=== PATIENT | male | born 1970 | race Two or more races ===

== ENCOUNTER 2023-08-16 12:38 | Inpatient (IN) ==
[2023-08-16] MEDS ORDERED: ONDANSETRON INJ 2 MG/ML 2 ML VIAL IV STA ×2 (12:54→13:14)
[2023-08-16] MEDS ORDERED: fentaNYL citrate PF 100 MCG/2 ML VIAL IV STA ×2 (13:14→14:15)
[2023-08-16] MEDS ORDERED: KETOROLAC TROMETHAMINE 15 MG/ML VIAL IV STA (13:14)
[2023-08-16 13:21] LABS: Basophils # (auto) 0.07 K/uL (0.00-0.20); Basophils % (auto) 0.7 %; Eosinophils # (auto) 0.15 K/uL (0.00-0.50); Eosinophils % (auto) 1.5 %; Hematocrit (blood only) 42.8 % (42.0-52.0); Hemoglobin 15.2 g/dl (14.0-18.0); Immature Granulocytes # (auto) 0.03 K/uL (0.01-0.20); Immature Granulocytes % (auto) 0.3 %; Lymphocytes # (auto) 3.77 K/uL (1.20-3.40); Lymphocytes % (auto) 36.7 %; Mean Corpuscular Hgb Conc 35.5 g/dL (32.0-36.0); Mean Corpuscular Volume 84.4 fL (80.0-100.0); Mean Platelet Volume 10.6 fL (9.4-12.4); Monocytes # (auto) 0.91 K/uL (0.11-0.59); Monocytes % (auto) 8.9 %; Neutrophils # (auto) 5.33 K/uL (1.40-6.50); Neutrophils % (auto) 51.9 %; Platelet Count 325 K/uL (130-400); RDW Coefficient of Variation 12.6 % (11.5-14.5); RDW Standard Deviation 38.5 fL (36.4-46.3); Red Blood Count 5.07 M/uL (4.70-6.10); White Blood Count 10.26 K/ul (4.8-10.8)
--- NOTE | 2023-08-16 13:25 | Emergency Department Note ---
History of Present Illness General Chief complaint: GI Assessment Stated complaint: LOWER ABD AND RT SIDE ABD PAIN, VOMIT Time Seen by Provider: 08/16/23 13:09 History of Present Illness Maximum Pain Intensity: 10 53-year-old male presents emergency department with 1 day history of lower abdominal pain that then worsened a few hours ago and is now located in the right flank radiates into his right groin. There is no back pain patient is having decreased urine output. Patient states that the pain is moderate in nature. His daughter is at bedside helping to translate. Patient denies prior history of any abdominal surgeries or ureterolithiasis. There are no other mitigating or alleviating factors. There is been no fever in the past 24 hours. Past Med/Surg History Social History Smoking Status: Current some day smoker Feels Safe at Home: Yes Immunizations: Past medical history denies Review of Systems A total of 10 systems reviewed and were otherwise negative Gastrointestinal: + abdominal pain Physical Exam Vital Signs Vital Signs - 24 hr 08/16/23 12:41 08/16/23 14:09 Temperature 36.8 C Temperature Source Temporal Artery Scan Pulse Rate 81 Pulse Rate [Finger] 69 Respiratory Rate 18 14 Respiratory Effort / Characteristics Non-Labored Spontaneous Respiratory Depth Normal Respiratory Pattern Regular Blood Pressure 158/88 H Blood Pressure [Left Arm] 139/89 Blood Pressure Mean 111 Blood Pressure Mean [Left Arm] 105 Blood Pressure Position Sitting Pulse Oximetry 98 99 Oxygen Delivery Method Room Air Room Air Sepsis Recent Fever Within 48 Hours No Sepsis New/Unexplained Change in Mental Status No Sepsis Action Taken by Nursing No Action Required GENERAL: Patient is awake alert in obvious pain pacing in the room EYES: The conjunctivae are clear. The pupils are round and reactive. EARS, NOSE, MOUTH AND THROAT: The nose is without any evidence of any deformity. Mucous membranes are moist. Tongue is midline. NECK: The neck is nontender and supple. RESPIRATORY: Normal respiratory effort is noted there is no evidence of wheezing rhonchi or rales CARDIOVASCULAR: Regular rate and rhythm noted there no murmurs rubs or gallops normal S1 normal S2. GASTROINTESTINAL: The abdomen is soft. Abdomen is nontender. No rebound rigidity or guarding BACK: No midline tenderness or or step-off noted range of motion in flexion extension as well as rotation no signs of muscle spasm noted; NO CVAT MUSCULOSKELETAL/EXTREMITIES: There is no evidence of gross deformity full range of motion is noted in the hips and shoulders. SKIN: There is no obvious evidence of any rash. There are no petechiae, pallor or cyanosis noted. NEUROLOGIC: Patient is awake alert and oriented x3 strength is symmetric Course Reevaluation(s) Reevaluation #1: Patient continues to have severe pain. He is writhing in pain on my repeat examination. Patient was given IV fluids IV Toradol IV fentanyl and IV Dilaudid and Flomax. Time: 14:50 Consultations Consultation #1: Case was discussed with Dr. Lin from urology Time: 14:50 Consultation #2: Spoke with the [facility]ist for admission Time: 15:10 Administered Medications Discontinued Medications Fentanyl Citrate (Fentanyl Citrate Pf 100 Mcg/2 Ml Vial) 50 mcg IV NOW STA Stop: 08/16/23 13:15 Last Admin: 08/16/23 13:18 Dose: 50 mcg Documented By: ANN-MARIE Fentanyl Citrate (Fentanyl Citrate Pf 100 Mcg/2 Ml Vial) 50 mcg IV NOW STA Stop: 08/16/23 14:16 Last Admin: 08/16/23 14:18 Dose: 50 mcg Documented By: MARISA Ketorolac Tromethamine (Ketorolac Tromethamine 15 Mg/Ml Vial) 15 mg IV NOW STA Stop: 08/16/23 13:15 Last Admin: 08/16/23 13:18 Dose: 15 mg Documented By: ANN-MARIE Ondansetron HCl (Ondansetron Inj 2 Mg/Ml 2 Ml Vial) 4 mg IV NOW STA Stop: 08/16/23 12:55 Last Admin: 08/16/23 12:59 Dose: 4 mg Documented By: ELISA Ondansetron HCl (Ondansetron Inj 2 Mg/Ml 2 Ml Vial) 4 mg IV NOW STA Stop: 08/16/23 13:15 Last Admin: 08/16/23 13:19 Dose: 4 mg Documented By: ANN-MARIE Tamsulosin HCl (Tamsulosin Hcl 0.4 Mg Cap) 0.4 mg PO NOW ONE Stop: 08/16/23 14:05 Last Admin: 08/16/23 14:55 Dose: Not Given Documented By: MARISA Medical Decision Making Medical Records Attestation: I reviewed the patient's medical records. Home Medications Current Medication List: was personally reviewed by me Laboratory Data Attestation: I reviewed the patient's lab results. Labs interpreted by me patient has mild hyperglycemia 08/16/23 13:00 08/16/23 13:00 Lab Results 08/16/23 Range/Units 13:00 WBC 10.26 (4.8-10.8) K/ul RBC 5.07 (4.70-6.10) M/uL Hgb 15.2 (14.0-18.0) g/dl Hct 42.8 (42.0-52.0) % MCV 84.4 (80.0-100.0) fL MCH 30.0 (25.0-34.0) pg MCHC 35.5 (32.0-36.0) g/dL RDW Std Deviation 38.5 (36.4-46.3) fL RDW Coeff of Capri 12.6 (11.5-14.5) % Plt Count 325 (130-400) K/uL MPV 10.6 (9.4-12.4) fL Immature Gran % (Auto) 0.3 % Neut % (Auto) 51.9 % Lymph % (Auto) 36.7 % [place] % (Auto) 8.9 % Eos % (Auto) 1.5 % Baso % (Auto) 0.7 % Neut # (Auto) 5.33 (1.40-6.50) K/uL Lymph # (Auto) 3.77 H (1.20-3.40) K/uL [place] # (Auto) 0.91 H (0.11-0.59) K/uL Eos # (Auto) 0.15 (0.00-0.50) K/uL Baso # (Auto) 0.07 (0.00-0.20) K/uL Immature Gran # (Auto) 0.03 (0.01-0.20) K/uL Sodium 136 (136-145) mmol/L Potassium 4.1 (3.5-5.1) mmol/L Chloride 103 (98-107) mmol/L Carbon Dioxide 24 (21-32) mmol/L Anion Gap 9 (3-11) BUN 16 (6-23) mg/dl Creatinine 0.94 (0.6-1.4) mg/dl Est Cr Clr Drug Dosing 102.2 ml/min Est GFR ( Amer) 106.1 ml/min Est GFR (Non-Af Amer) 91.6 ml/min BUN/Creatinine Ratio 17.0 (10-20) Glucose 183 H (70-99(Fasting)) mg/dl Calcium 9.2 (8.6-10.3) mg/dl Total Bilirubin 0.5 (0.2-1.0) mg/dl AST 19 (13-39) U/L ALT 22 (7-52) U/L Alkaline Phosphatase 52 (34-104) U/L Total Protein 8.2 (6.0-8.3) gm/dl Albumin 4.4 (3.4-5.0) gm/dl Globulin 3.8 (2.5-4.0) gm/dl Albumin/Globulin Ratio 1.2 (0.9-2) Lipase 30 (11-82) U/L Imaging Data Attestation: I personally reviewed and interpreted this imaging study as follows: My Impression: CT abdomen pelvis per my interpretation is a 5 mm stone present at the right UVJ Radiologist's Impression: Abdomen/Pelvis CT 08/16/23 13:18 CT OF THE ABDOMEN AND PELVIS WITHOUT CONTRAST CLINICAL HISTORY: Right flank pain. COMPARISON STUDY: No previous studies for comparison. TECHNIQUE: Axial images of the abdomen and pelvis were obtained without IV contrast. Images were reviewed in the axial, sagittal, and coronal planes. Automated exposure control was utilized for the study. A dose lowering technique was utilized adhering to the principles of ALARA. FINDINGS: Lung bases are unremarkable. 5 mm calcification projects over the right posterior aspect of the bladder. This is at the ureterovesical junction. This results in mild right hydroureteronephrosis. Several right renal calculi measure up to 4 mm. There are no left ureteral calculi. There is no left hydronephrosis. There is mild right perinephric and periureteral stranding. A 3.5 cm hypodense lesion within the midpole of the right kidney measures just above water attenuation. This contains a few punctate calcifications. This is suboptimally assessed on this unenhanced exam. Liver, spleen, adrenal glands and pancreas are unremarkable. There is no evidence for a bowel obstruction. The appendix is normal. There is no lymphadenopathy. IMPRESSION: 1. 5 mm right ureterovesical junction calculus results in mild hydroureteronephrosis with minimal perinephric and periureteral stranding. 2. Right nephrolithiasis. 3. 3.5 cm hypodense right renal lesion. This probably reflects a mildly complicated cyst. However, a nonemergent follow-up renal protocol MRI is recommended to exclude the less likely possibility of a cystic neoplasm. ACT 112: Positive. There are findings on this exam that require communication between the performing entity and the patient following Patient Test Result Information Act ([place] Act 112) guidelines. Electronically signed by: Vic Ann M.D. 08/16/2023 1:59 PM MDM Narrative Medical decision making differential diagnosis includes ureterolithiasis, renal colic, urinary tract infection, bowel obstruction, musculoskeletal spasm Plan is to check labs, CT, give IV fluids IV pain medicine IV antiemetics Patient has a 5 mm stone at the UVJ on the right side on CT, continues to have severe pain. The case was discussed with the urologist Dr. Lin and the patient will be admitted for intractable pain Impression & Plan Ureterolithiasis, Intractable pain Discharge Plan Visit Data Chief Complaint: GI Assessment Stated Complaint: LOWER ABD AND RT SIDE ABD PAIN, VOMIT ED Provider: Sixto Soriano Discharge Problem: Ureterolithiasis, Intractable pain Patient Disposition: Admitted As Inpatient Forms Stand Alone Forms: My [facility] Referrals Referrals: PCP,NO [Physician] -
[2023-08-16 13:37] LABS: Albumin Globulin Ratio 1.2 (0.9-2); Albumin Level 4.4 gm/dl (3.4-5.0); Bilirubin,Total 0.5 mg/dl (0.2-1.0); Calcium 9.2 mg/dl (8.6-10.3); Creatinine Clr Calc Pharmacy 102.2 ml/min; Est GFR (African American) 106.1 ml/min; Est GFR (Non-African American) 91.6 ml/min; Globulin 3.8 gm/dl (2.5-4.0); Potassium 4.1 mmol/L (3.5-5.1); Total Protein 8.2 gm/dl (6.0-8.3)
--- NOTE | 2023-08-16 14:01 | CT Scan Report ---
CT OF THE ABDOMEN AND PELVIS WITHOUT CONTRAST CLINICAL HISTORY: Right flank pain. COMPARISON STUDY: No previous studies for comparison. TECHNIQUE: Axial images of the abdomen and pelvis were obtained without IV contrast. Images were revi ewed in the axial, sagittal, and coronal planes. Automated exposure control was utilized for the dianelys dy. A dose lowering technique was utilized adhering to the principles of ALARA. FINDINGS: Lung bases are unremarkable. 5 mm calcification projects over the right posterior aspect of the bladder. This is at the ureterovesical junction. This results in mild right hydroureteronephrosi s. Several right renal calculi measure up to 4 mm. There are no left ureteral calculi. There is no le ft hydronephrosis. There is mild right perinephric and periureteral stranding. A 3.5 cm hypodense les ion within the midpole of the right kidney measures just above water attenuation. This contains a few punctate calcifications. This is suboptimally assessed on this unenhanced exam. Liver, spleen, adren al glands and pancreas are unremarkable. There is no evidence for a bowel obstruction. The appendix i s normal. There is no lymphadenopathy. IMPRESSION: 1. 5 mm right ureterovesical junction calculus results in mild hydroureteronephrosis with minimal per inephric and periureteral stranding. 2. Right nephrolithiasis. 3. 3.5 cm hypodense right renal lesion. This probably reflects a mildly complicated cyst. However, a nonemergent follow-up renal protocol MRI is recommended to exclude the less likely possibility of a c ystic neoplasm. ACT 112: Positive. There are findings on this exam that require communication between the performing entity and the patient following Patient Test Result Information Act ([place] Act 112) guidelines. Electronically signed by: Vic Ann M.D. 08/16/2023 1:59 PM
[2023-08-16] MEDS: TAMSULOSIN HCL 0.4 MG CAP PO ONE ×2 (14:13→14:55)
[2023-08-16] MEDS ORDERED: HYDROmorphone INJ 0.5 MG/0.5 ML SYR IV STA (14:35)
--- NOTE | 2023-08-16 15:59 | History & Physical Report ---
Date of Service August 16, 2023 Assessment & Plan (1) Ureterolithiasis: (2) Right flank pain: (3) Hydronephrosis: Plan: Patient is a 53-year-old male with PMH DM II, dyslipidemia presented to ER with c/o right flank pain started this morning with associated nausea and vomiting. In ER afebrile, vitals stable. No leukocytosis, renal functions WNL CT abd/pelvis: 5 mm right ureterovesical junction calculus results in mild hydroureteronephrosis with minimal perinephric and periureteral stranding. Right nephrolithiasis. In ER given toradol IV, total 100mcg Fentanyl, zofran, tamsulosin Upon my evaluation patient now reports pain 2/10 on pain scale and feeling improved UA pending to rule out UTI Strain urine Start Flomax Pain control with Tylenol, Toradol, oxycodone, morphine as needed If would pass stone plan to send stone for evaluation ER physician spoke to urology on-call who suggested conservative management and observation at this time Urology consult CBC, BMP in am (4) Renal cyst: Plan: CT abd/pelvis: 3.5 cm hypodense right renal lesion. This probably reflects a mildly complicated cyst. However, a nonemergent follow-up renal protocol MRI is recommended to exclude the less likely possibility of a cystic neoplasm. Urology consult for recommendations on imaging and follow up (5) Diabetes mellitus, type II: Plan: A1c: 6.7 on 09/18/22 random glucose: 183 Hold home metformin Novolog sliding scale per protocol A1c in am (6) Dyslipidemia: Plan: Continue simvastatin DVT Prophylaxis SCDs Full Code as per discussion with pt Follows with Dr Goldman for routine care Pt was seen and care coordinated with Dr Alvarez. See addendum History of Present Illness Chief Complaint: Flank pain Primary Care Provider: Danika Goldman MD Patient is a 53-year-old male with PMH DM II, dyslipidemia presented to ER with c/o right flank pain started this morning. History obtained from patient, daughter and outpatient chart review. 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 He states he will accept and use crystal growing technician service when daughter goes home. Patient states yesterday started with slight twinge lower abdomen but initially thought it was gas. This morning had onset of severe pain right flank radiating to groin. Also had nausea and vomiting. States pain was 10/10 on pain scale. States always cold but hasn't noticed a fever. Denies history kidney stones. Denies fever/chills, diaphoresis, hematemesis, melena, hematochezia, diarrhea, constipation, REINOSO, dizziness, syncope, CP, SOB, cough, sore throat, rhinorrhea, weakness, extremity edema, rashes, urinary retention, urinary frequency, hematuria, dysuria. Allergies Allergy/AdvReac Type Severity Reaction Status Date / Time No Known Drug Allergies Allergy Verified 08/16/23 15:28 Home Medications Medication Instructions Recorded Confirmed Type metformin 500 mg tablet 500 mg PO BIDM 08/16/23 08/16/23 History simvastatin 40 mg tablet 40 mg PO QAM 08/16/23 08/16/23 History Past Med/Surg History Medical History Dyslipidemia Diabetes mellitus, type II Surgical History No pertinent past surgical history Family History Father Kidney disease Sister Diabetes Social History (Updated 08/16/23 @ 16:22 by Darcie Vivas PA-C) Smoking Status: Current some day smoker Cigarettes Per Day: 2 cigarettes a day; Hx Alcohol Use: No Hx Substance Use: No Preferred Language: [place] Feels Safe at Home: Yes Review of Systems Review of Systems: All systems reviewed & are unremarkable except as noted in HPI & below Physical Exam Physical Exam: General: no current distress, WDWN Head: normocephalic, atraumatic Eyes: conjunctiva non-injected, anicteric ENT: normal inspection external ears, nose, mucous membranes dry Neck: supple, trachea midline Lungs: clear, no respiratory distress, no wheezing/rhonchi/rales CV: RRR, no murmur, no pretibial edema Abd: normal BS, soft,+tenderness to palpation right flank, RLE without rebound or guarding Ext: no cyanosis, no calf tenderness Neuro: A&O x 3, no focal deficits noted, normal affect Skin: warm, dry Results & Data Results & Data Vital Signs (Past 12 Hours) Vital Signs Temp Pulse Pulse Resp BP BP Pulse Ox 08/16/23 14:09 69 14 139/89 99 08/16/23 12:41 36.8 C 81 18 158/88 H 98 O2 Del Method 08/16/23 14:09 Room Air 08/16/23 12:41 Room Air Laboratory Results Short CBC 08/16/23 Range/Units 13:00 WBC 10.26 (4.8-10.8) K/ul Hgb 15.2 (14.0-18.0) g/dl Hct 42.8 (42.0-52.0) % Plt Count 325 (130-400) K/uL BMP 08/16/23 13:00 Sodium 136 Potassium 4.1 Chloride 103 Carbon Dioxide 24 BUN 16 Creatinine 0.94 Glucose 183 H Calcium 9.2 Liver Function 08/16/23 Range/Units 13:00 Total Bilirubin 0.5 (0.2-1.0) mg/dl AST 19 (13-39) U/L ALT 22 (7-52) U/L Alkaline Phosphatase 52 (34-104) U/L Albumin 4.4 (3.4-5.0) gm/dl Diagnostic Findings Abdomen/Pelvis CT 08/16/23 13:18 CT OF THE ABDOMEN AND PELVIS WITHOUT CONTRAST CLINICAL HISTORY: Right flank pain. COMPARISON STUDY: No previous studies for comparison. TECHNIQUE: Axial images of the abdomen and pelvis were obtained without IV contrast. Images were reviewed in the axial, sagittal, and coronal planes. Automated exposure control was utilized for the study. A dose lowering technique was utilized adhering to the principles of ALARA. FINDINGS: Lung bases are unremarkable. 5 mm calcification projects over the right posterior aspect of the bladder. This is at the ureterovesical junction. This results in mild right hydroureteronephrosis. Several right renal calculi measure up to 4 mm. There are no left ureteral calculi. There is no left hydronephrosis. There is mild right perinephric and periureteral stranding. A 3.5 cm hypodense lesion within the midpole of the right kidney measures just above water attenuation. This contains a few punctate calcifications. This is suboptimally assessed on this unenhanced exam. Liver, spleen, adrenal glands and pancreas are unremarkable. There is no evidence for a bowel obstruction. The appendix is normal. There is no lymphadenopathy. IMPRESSION: 1. 5 mm right ureterovesical junction calculus results in mild hydroureteronephrosis with minimal perinephric and periureteral stranding. 2. Right nephrolithiasis. 3. 3.5 cm hypodense right renal lesion. This probably reflects a mildly complicated cyst. However, a nonemergent follow-up renal protocol MRI is recommended to exclude the less likely possibility of a cystic neoplasm. ACT 112: Positive. There are findings on this exam that require communication between the performing entity and the patient following Patient Test Result Information Act ([place] Act 112) guidelines. Electronically signed by: Vic Ann M.D. 08/16/2023 1:59 PM Code Status & VTE Plan VTE Prophylaxis Plan VTE Prophylaxis will be ordered: Yes Supervising Physician Co-Signing Physician Notes I have seen and discussed the case with the collaborating SH[facility]. I agree with the above H&P. I have reviewed and confirmed the patients medical history, the findings on physical examination, and the patients diagnosis and treatment plan with Edwin SQUIRES and agree with the information documented. In short, Mr. Uribe is a [place] speaking gentleman with past history notable for HLD, DMTII who is admitted for pain control in setting of obstructing nephrolithiasis. Urology recommended observation at this time. Translation provided by daughter per patient request. On time of eval, reported pain better controlled and no acute concerns. Physical exam is notable for a gentleman resting comfortably in bed. Resp CTABL, CV RRR, Abd NTND, MSK 5/5 strength in all extremities. Reports more comfort laying supine versus sitting upright. Labs without FRANCI. Hyperglycemia noted. Plan #Obstructing nephrolithiasis -No signs of infection, will hold on abx and follow up UA -Start flomax and hydrate, plan to strain urine to send stone for eval -Urology following, appreciate further recommendations contingent on course #Lesion on right kidney -likely OP renal follow up, will defer to Urology for any urgent imaging recommendations Rest of plan as above
[2023-08-16] MEDS ORDERED: oxyCODONE HCL IR 5 MG TAB (IMMEDIATE RELEASE) PO PRN (16:44)
[2023-08-16] MEDS ORDERED: GLUCAGON FOR INJ 1 MG VIAL SQ PRN (16:44)
[2023-08-16] MEDS ORDERED: MoRPHine SULFATE 4 MG/ML 1 ML CARP\\VIAL IV PRN (16:44)
[2023-08-16] MEDS ORDERED: MAGNESIUM HYDROXIDE SUSP 30 ML UDC PO PRN (16:44)
[2023-08-16] MEDS ORDERED: DEXTROSE 50% 50 ML SYRINGE IV PRN (16:44)
[2023-08-16] MEDS ORDERED: ACETAMINOPHEN 325 MG TAB PO PRN (16:44)
[2023-08-16] MEDS ORDERED: GLUCOSE 10 TAB/TUBE PO PRN (16:44)
[2023-08-16] MEDS ORDERED: CARBOHYDRATES FOR HYPOGLYCEMIA PO PRN (16:44)
[2023-08-16] MEDS ORDERED: ONDANSETRON INJ 2 MG/ML 2 ML VIAL IV PRN (16:44)
[2023-08-16] MEDS ORDERED: POLYETHYLENE (MIRALAX) 17 GM PACK PO PRN (16:44)
[2023-08-16] MEDS ORDERED: GLUCOSE 40% GEL 15 GM TUBE PO PRN (16:44)
[2023-08-16] MEDS ORDERED: KETOROLAC TROMETHAMINE 15 MG/ML VIAL IV PRN (16:44)
[2023-08-16] MEDS: SODIUM CHLORIDE 0.9% 1,000 ML IV SCH (17:55)
[2023-08-16] MEDS: INSULIN ASPART PER UNIT CHARGE SC SCH ×2 (18:03→20:57)
--- OUTSIDE RECORDS SUMMARY | 2023-08-16 21:24 | External Medical Summary | Summary of Care ---
Author Name Unknown Organization [facility] Address [address] [place] [address] Phone [phone] Care Team Providers Care Marionette Performer Name Role Phone Danika Goldman MD Primary Care Provider Reason for Visit * Reason Comments Acute Sinus pressure, head ache, body aches, weakness, chills, Temp 102.2 last evening-symptoms started 3 days ago Encounter Details Date Type Department Care Team Description 05/17/2023 Office Visit [facility] [address] [place] [address] Jayson Gallegos MD [address] [place] [address] Spasm of muscle* Allergies No known active allergiesdocumented as of this encounter (statuses as of 05/17/2023) Medications Medication Sig Dispensed Refills Start Date End Date Status metFORMIN HCl 500 MG Oral Tablet (Glucophage)Indicati ons:Type 2 diabetes mellitus with hemoglobin A1c goal of less than 7.0% (HCC) Take 1 Tablet by mouth 2 times a day with morning and evening meals. 180 Tablet 3 09/18/2022 Active Simvastatin 40 MG Oral Tablet (Zocor)Indications:D yslipidemia, goal LDL below 130 Take 1 Tablet by mouth in the morning. 90 Tablet 3 09/18/2022 Active Cyclobenzaprine HCl 10 MG Oral Tablet (Flexeril)Indication s:Spasm of muscle Take 1 Tablet by mouth 2 times a day as needed for Muscle spasms. 10 Tablet 0 05/17/2023 Active documented as of this encounter (statuses as of 05/17/2023) Active Problems Problem Noted Date PTSD (post-traumatic stress disorder) Persistent insomnia 01/11/2022 Chronic bilateral thoracic back pain Benign skin cyst 01/11/2022 Laceration of finger nail bed 09/20/2021 Type 2 diabetes mellitus with hemoglobin A1c goal of less than 7.0% 08/30/2021 Dyslipidemia, goal LDL below 130 022 Recurrent major depressive disorder, in full remission 08/30/2021 COVID-19 virus infection 08/30/2021 Overview: 06/2020, hospitalized. documented as of this encounter (statuses as of 05/17/2023) Immunizations Name Administration Dates Next Due COVID-19 mRNA, LNP-s, No Pre serve, 2-Dose Series (Pfizer) 12/19/2020,11/28/2020 TDAP (age 10 and older)(Boostrix) 09/16/2021 documented as of this encounter Social History Tobacco Use Types Packs/Day Years Used Date Smoking Tobacco: Never Smokeless Tobacco: Never Alcohol Use Standard Drinks/Week Comments Never 0 (1 standard drink = 0.6 oz pur e alcohol) Food Insecurity Answer Date Recorded Within the past 12 months, y ou worried that your food would run out before you got money to buy more. Never true 05/16/2023 Within the past 12 months, t he food you bought just didn't last and you didn't have money to get more. Never true 05/16/2023 Sex Assigned at Date Recorded Male 09/17/2022 4:[address] Job Start Date Occupation Industry Not on file Not on file Not on file documented as of this encounter Last Filed Vital Signs Vital Sign Reading Time Taken Comments Blood Pressure 122/70 05/17/2023 1:00 PM EDT Pulse 78 05/17/2023 1:00 PM EDT Temperature 36.5 C (97.7 F) 05/17/2023 1:00 PM ED T Respiratory Rate 18 05/17/2023 1:00 PM EDT Oxygen Saturation 97% 05/17/2023 1:00 PM EDT Inhaled Oxygen Concentration - - Weight 98.4 kg (217 lb) 05/17/2023 1:00 PM EDT Height - - Body Mass Index 28.51 08/30/2021 3:09 PM EST documented in this encounter Progress Notes * Jayson Gallegos MD - 05/17/2023 1:43 PM EDT Subjective: Cody Uribe is a 53 year old male. Chief Complaint Patient presents with Acute Sinus pressure, headache, body aches, weakness, chills, Temp 102.2 last evening- symptoms started 3 days ago HPI: 53-year-old is seen today with 2 day history of generalize achiness, headache, fever, fatigue/weakness, sinus pressure. He is not had any cough. Not short of breath. Has had no rash. Not aware of any tick bites. Has been using Tylenol in admits that he has been using it every 4 hours so probably in excess. Notes that symptoms are different than when he had COVID-19 infection. He has not tested for COVID-19. Had fever at 1:02 a.m. 0.2 last evening. He asked for renewal of cyclobenzaprine which had been given for back pain. Patient Active Problem List Diagnosis Code Type 2 diabetes mellitus with hemoglobin A1c goal of less than 7.0% ([facility]) E11.9 Dyslipidemia, goal LDL below 130 E78.5 Recurrent major depressive disorder, in full remission ([facility]) F33.42 COVID-19 virus infection U07.1 Laceration of finger nail bed S61.319A PTSD (post-traumatic stress disorder) F43.10 Persistent insomnia G47.00 Chronic bilateral thoracic back pain M54.6, G89.29 Benign skin cyst L72.9 Current Outpatient Medications Medication Sig Dispense Refill metFORMIN HCl 500 MG Oral Tablet (Glucophage) Take 1 Tablet by mouth 2 times a day with morning andevening meals. 180 Tablet 3 Simvastatin 40 MG Oral Tablet (Zocor) Take 1 Tablet by mouth in the morning. 90 Tablet 3 Cyclobenzaprine HCl 10 MG Oral Tablet (Flexeril) Take 1 Tablet by mouth 2 times a day as needed forMuscle spasms. 10 Tablet 0 No current facility-administered medications for this visit. Review of patient's allergies indicates: No Known Allergies Objective: BP 122/70 | Pulse 78 | Temp 36.5 C (97.7 F) | Resp 18 | Wt 98.4 kg (217 lb) | SpO2 97% | BMI 28.51 kg/m | BSA 2.25 m Physical Exam: CONST: alert, pleasant, looks ill although not toxic HEAD: normocephalic, atraumatic NECK: supple, soft, no adenopathy EARS: canals normal, TMs normal Eyes - PERRLA, EOM'I OROPHARYNX: clear, some diffuse swelling noted the soft palate and the uvula. Minimal erythematous changes CV: regular rate and rhythm, no murmur CHEST: clear to auscultation bilaterally, no rales or wheezing ABD: soft, non tender, non distended, no masses or hepatosplenomegaly EXT: no edema, no joint swelling or deformities, MENTAL STATUS: no evidence of thought disorder, no delusional thought, no evidence of paranoia, thought is non-tangential. SKIN: no rash or significant lesions ASSESSMENT/PLAN: Febrile illness-exact etiology unclear. Discussed possibility of COVID infection. Recommended he doa rapid COVID test. Recommended he get back in touch with me if positive as I feel he should then be treated with Paxlovid Consider Lyme test/tick-borne illness panel/in. Treatment doxycycline if COVID test negative Explain proper dosing of acetaminophen i.e. no more than 3 g a day. Spasm of muscle (Primary) - Cyclobenzaprine HCl 10 MG Oral Tablet (Flexeril); Take 1 Tablet by mouth 2 times a day as needed for Muscle spasms. Jayson Gallegos MD documented in this encounter Nursing Notes * Carri Renner LPN - 05/17/2023 1:02 PM EDT The patient has been properly identified by confirmation of name and date of . Chief Complaint Patient presents with Acute Sinus pressure, headache, body aches, weakness, chills, Temp 102.2 last evening- symptoms started 3 days ago documented in this encounter Plan of Treatment Health Maintenance Due Date Last Done Comments Hepatitis B (1 of 3 - 3-dose series) 1969 Pneumococcal Vaccine: Pediatrics (0 to 5 Years) and At-Risk Patients (6 to 64 Years) (1 - PCV) 1975 Depression Screening 1981 HIV Screening 1984 DIABETES-EYE EXAM 1987 Diabetic Foot Exam 1987 Hepatitis C Screening 1987 Cologuard 2014 Colonoscopy 2014 Colorectal Cancer Screening 2014 Fecal Occult Blood Test 2014 Sigmoidoscopy 2014 Zoster Vaccines (1 of 2) 2019 COVID-19 Vaccine (3 - Pfizer series) 02/13/2021 12/19/2020, 11/28/2020 Albumin/Creatinine Ratio 02/09/2023 02/09/2022 HbA1c 03/18/2023 09/18/2022, 02/09/2022, 08/30/2021 Influenza Vaccine (FLU shot) (#1) 2023 GFR 09/18/2023 09/18/2022, 02/09/2022, 09/16/2021 Lipid Panel 09/18/2027 09/18/2022 DTaP,Tdap,and Td Vaccines (2 - Td or Tdap) 09/16/2031 09/16/2021 GARDASIL-HPV IMMUNIZATION SERIES Aged Out No longer eligible b ased on patient's age to complete this topic MENINGOCOCCAL (MENACTRA/MENVEO) Aged Out No longer eligible b ased on patient's age to complete this topic documented as of this encounter Medical Devices Not on filedocumented as of this encounter Visit Diagnoses Diagnosis Spasm of muscle- Primary documented in this encounter Care Teams Marionette Performer Relationship Specialty Start Date End Date Danika Goldman MD [address] [place] [address] PCP - General Internal Medicine 08/30/21 documented as of this encounter"
--- OUTSIDE RECORDS SUMMARY | 2023-08-16 21:24 | External Medical Summary | Summary of Care ---
Author Name Unknown Organization [facility] Address [address] [place] [address] Phone [phone] Care Team Providers Care Facs Teacher Name Role Phone Danika Goldman MD Primary Care Provider Reason for Visit * Reason Comments Acute Sinus pressure, head ache, body aches, weakness, chills, Temp 102.2 last evening-symptoms started 3 days ago Encounter Details Date Type Department Care Team Description 05/17/[address] [facility] [address] [place] [address] Jayson Gallegos MD [address] [place] [address] Spasm of muscle* Allergies No [...] hemoglobin A1c goal of less than 7.0% ([facility]) E11.9 Dyslipidemia, goal LDL below 130 E78.5 Recurrent major depressive disorder, in full remission ([facility]) F33.42 COVID-19 virus infection U07.1 Laceration of [...] with Paxlovid Consider Lyme test/tick-borne illness panel/in. If covid test negative, consider getting Lyme test. Explain proper dosing of acetaminophen i.e. no [...] Primary documented in this encounter Care Teams Facs Teacher Relationship Specialty Start Date End Date Danika Goldman MD [address] [place] [id number] PCP - General Internal Medicine 08/30/21 documented as of this encounter"
[2023-08-16 23:36] LABS: Appearance Urine Clear (Clear); Bacteria Urine Automated Negative (Negative); Bilirubin Urine Negative (Negative); Blood Urine 2+ (Negative); Color Urine Yellow; Glucose Urine UA Negative (Negative); Ketones Urine Trace (Negative); Leukocyte Esterase Urine Negative (Negative); Nitrite Urine Negative (Negative); Protein Urine Trace (Negative); RBC Urine Automated >30 /hpf (0-4); Specific Gravity Urine 1.024 (1.000-1.030); Urobilinogen Urine Negative (Negative); pH Urine 6.5 (4.5-7.5)
[2023-08-17] MEDS ORDERED: Nursing to Pharmacy Communication SCH ×2 (00:15→11:45)
[2023-08-17] MEDS: SODIUM CHLORIDE 0.9% 1,000 ML IV SCH (01:58)
[2023-08-17] MEDS ORDERED: INSULIN ASPART PER UNIT CHARGE SC SCH ×2 (06:00→11:45)
[2023-08-17 07:52] LABS: Hemoglobin 13.5 g/dl (14.0-18.0); Mean Corpuscular Hemoglobin 29.5 pg (25.0-34.0); Mean Corpuscular Hgb Conc 33.8 g/dL (32.0-36.0); Mean Corpuscular Volume 87.3 fL (80.0-100.0); Mean Platelet Volume 11.1 fL (9.4-12.4); Platelet Count 283 K/uL (130-400); RDW Coefficient of Variation 12.9 % (11.5-14.5); RDW Standard Deviation 41.3 fL (36.4-46.3); Red Blood Count 4.58 M/uL (4.70-6.10); White Blood Count 9.78 K/ul (4.8-10.8)
[2023-08-17 08:10] LABS: BUN Creatinine Ratio 16.1 (10-20); Calcium 8.4 mg/dl (8.6-10.3); Creatinine Clr Calc Pharmacy 117.6 ml/min; Est GFR (African American) 113.4 ml/min; Est GFR (Non-African American) 97.8 ml/min; Potassium 3.9 mmol/L (3.5-5.1)
[2023-08-17] MEDS ORDERED: SIMVASTATIN 40 MG TAB PO SCH (09:00)
[2023-08-17] MEDS ORDERED: TAMSULOSIN HCL 0.4 MG CAP PO SCH (09:00)
[2023-08-17 09:37] LABS: Estimated Average Glucose 171 mg/dl; Hemoglobin A1C 7.6 % (4.5-5.6)
--- NOTE | 2023-08-17 11:54 | Urology Consultation ---
Date of Consultation August 17, 2023 Assessment & Plan (1) Ureterolithiasis: (2) Renal cyst: Plan Successful stone passage overnight Still with small stones within the right kidney and a suspected renal cyst Plan for discharge home now advanced diet Should not require further pain medication or antibiotic coverage at present Follow-up as an outpatient with his PCP to review stone analysis, can then establish with urology for further care in the future preventative measures History of Present Illness Attending Physician: Zainab Iqbal MD History of Present Illness 53-year-old gentleman admitted last night secondary to intractable right sided flank pain with associated nausea CT at that time revealed 2 small stones within the kidney He also has an extreme distal right ureteral calculus This stone appeared on CT to be crusting into the bladder He also likely has a cyst within the right kidney No left-sided abnormalities of the renal parenchyma nor stones Overnight, he has successfully passed the stone It has been sent to the lab for chemical analysis He has no current symptoms He has no prior history of kidney stones and has not previously seen a urologist He does follow with the [facility] primary care doctor and I discussed that it may be worth pursuing future urological follow-up because of his remaining renal stones and the renal cyst He can have this follow-up either with [facility] urology or [facility] if it is more convenient Allergies Allergy/AdvReac Type Severity Reaction Status Date / Time No Known Drug Allergies Allergy Verified 08/16/23 15:28 Home Medications Medication Instructions Recorded Confirmed Type metformin 500 mg tablet 500 mg PO BIDM 08/16/23 08/16/23 History simvastatin 40 mg tablet 40 mg PO QAM 08/16/23 08/16/23 History Patient History Medical History Dyslipidemia Diabetes mellitus, type II Surgical History No pertinent past surgical history Family History Father Kidney disease Sister Diabetes Social History (Updated 08/16/23 @ 16:22 by Darcie Vivas PA-C) Smoking Status: Current some day smoker Tobacco Type: Cigarettes Cigarettes Per Day: 2 cigarettes a day; Second Hand Exposure: No; Do You Dip or Chew Tobacco: No; Tobacco Cessation Education Requested by Patient: No Hx Alcohol Use: No Hx Substance Use: No Preferred Language: Nicaraguan Communication Ability: Effective Electrical Design Technician Required: Yes Beliefs That Will Affect Care: Faith Faith Beliefs: no pork; no alcohol, no meat Current Living Situation: Family Other Information That Helps Us Care for You: No Feels Safe at Home: Yes Assistive Devices: Glasses Physical Exam Constitutional: well developed and well nourished Respiratory: no respiratory distress Cardiovascular: Extremities: no pedal edema Gastrointestinal (Abdomen): Inspection/Auscultation: abdomen normal to inspection Results & Data Vital Signs (Past 12 Hours) Vital Signs Temp Pulse Resp BP Pulse Ox O2 Del Method 08/17/23 07:38 36.4 C L 63 20 120/76 97 Room Air PG Care Time/CCT Total # of Minutes Spent Total Time Spent with Patient: Total time spent is greater than 50% in coordination of care (as documented) at patient's floor/unit and/or counseling patient: Coding Level of Care Code 32027 IN/OBS CONSULT LVL 3,45M Diagnoses Ureterolithiasis N20.1 Renal cyst N28.1
--- NOTE | 2023-08-17 14:43 | Discharge Summary ---
Date of Service August 17, 2023 Admission HPI Per Admitting Provider Patient is a 53-year-old male with PMH DM II, dyslipidemia presented to ER with c/o right flank pain started this morning. History obtained from patient, daughter and outpatient chart review. Patient speaks Mosotho and denies use of statistical machine servicer service and wishes daughter to interpeter. He states he will accept and use statistical machine servicer service when daughter goes home. Patient states yesterday started with slight twinge lower abdomen but initially thought it was gas. This morning had onset of severe pain right flank radiating to groin. Also had nausea and vomiting. States pain was 10/10 on pain scale. States always cold but hasn't noticed a fever. Denies history kidney stones. Denies fever/chills, diaphoresis, hematemesis, melena, hematochezia, diarrhea, constipation, REINOSO, dizziness, syncope, CP, SOB, cough, sore throat, rhinorrhea, weakness, extremity edema, rashes, urinary retention, urinary frequency, hematuria, dysuria. Admission Exam Per Admitting Provider General: no current distress, WDWN Head: normocephalic, atraumatic Eyes: conjunctiva non-injected, anicteric ENT: normal inspection external ears, nose, mucous membranes dry Neck: supple, trachea midline Lungs: clear, no respiratory distress, no wheezing/rhonchi/rales CV: RRR, no murmur, no pretibial edema Abd: normal BS, soft,+tenderness to palpation right flank, RLE without rebound or guarding Ext: no cyanosis, no calf tenderness Neuro: A&O x 3, no focal deficits noted, normal affect Skin: warm, dry Principal Diagnosis Ureterolithiasis Nephrolithiasis (Kidney stone) Discharge Exam Constitutional + well hydrated; no acute distress Eyes PERRL, conjunctivae normal, anicteric sclerae ENMT external ear and nose normal, oropharynx normal Respiratory normal respiratory effort, lungs clear to auscultation Cardiovascular Rate/Rhythm: regular rate and regular rhythm S1 S2 Gastrointestinal (Abdomen) normal bowel sounds, soft, nontender, no hepatosplenomegaly Musculoskeletal no cyanosis or clubbing, extremities motor strength 5/5 Neurologic PERRL, EOMI, accommodation nl, no face palsy, no dysarthria Psychiatric A+Ox3, euthymic affect Genitourinary No CVA tenderness Discharge Data Allergies Allergy/AdvReac Type Severity Reaction Status Date / Time No Known Drug Allergies Allergy Verified 08/16/23 15:28 Consultations 08/16/23 15:09 ED Decision to Admit Stat 08/16/23 16:44 Consult Urology Routine Ordered Studies 08/16/23 13:18 CT abd pelvis wo con Stat FINDINGS: Lung bases are unremarkable. 5 mm calcification projects over the right posterior aspect of the bladder. This is at the ureterovesical junction. This results in mild right hydroureteronephrosis. Several right renal calculi measure up to 4 mm. There are no left ureteral calculi. There is no left hydronephrosis. There is mild right perinephric and periureteral stranding. A 3.5 cm hypodense lesion within the midpole of the right kidney measures just above water attenuation. This contains a few punctate calcifications. This is suboptimally assessed on this unenhanced exam. Liver, spleen, adrenal glands and pancreas are unremarkable. There is no evidence for a bowel obstruction. The appendix is normal. There is no lymphadenopathy. IMPRESSION: 1. 5 mm right ureterovesical junction calculus results in mild hydroureteronephrosis with minimal perinephric and periureteral stranding. 2. Right nephrolithiasis. 3. 3.5 cm hypodense right renal lesion. This probably reflects a mildly complicated cyst. However, a nonemergent follow-up renal protocol MRI is recommended to exclude the less likely possibility of a cystic neoplasm. Hospital Course (1) Ureterolithiasis: (2) Right flank pain: (3) Hydronephrosis: Patient is a 53-year-old male with PMH DM II, dyslipidemia presented to ER with c/o right flank pain started this morning with associated nausea and vomiting. In ER afebrile, vitals stable. No leukocytosis Renal function was normal CT abd/pelvis: 5 mm right ureterovesical junction calculus results in mild hydroureteronephrosis with minimal perinephric and periureteral stranding. Right nephrolithiasis. In ER, patient received toradol IV, total 100mcg Fentanyl, zofran, tamsulosin Urinalysis did not suggest UTI Urine was strained and patient was placed on IVF Patient successfully passed the stone Flank pain resolved Patient was evaluated by Urology who recommends no further inpatient eval/intervention Patient's PCP to follow up stone analysis. Patient was seen and examined today He declined using statistical machine servicer services. I explained this is standard protocol but he strongly declined and preferred the daughter to interprete. He denied any complaints today. Reports he is back to normal Exam is unremarkable (4) Renal cyst: CT abd/pelvis: 3.5 cm hypodense right renal lesion. This probably reflects a mildly complicated cyst. However, a nonemergent follow-up renal protocol MRI is recommended to exclude the less likely possibility of a cystic neoplasm. Reviewed CT findings with patient and daughter PCP to follow up with Urology referral for further eval (5) Diabetes mellitus, type II: A1c: 6.7 on 09/18/22 HbA1c today is 7.6 Continue home metformin (6) Dyslipidemia: Continue simvastatin Total Time Total Time Spent Total Time Spent (In Minutes): 40 Total Time Includes: Examination of the Patient, Discharge Planning and Medication Reconciliation Discharge Plan Discharge Items Patient Disposition: Home - Self-Care Reason For Visit: RENAL COLIC Discharge Diagnosis: Ureterolithiasis Nephrolithiasis (Kidney stone) Activity: Resume your previous activity Non-emergency contact: Primary Care Provider Call non-emergency contact if: you have any medication questions Follow-up/Referrals: Danika Goldman MD [Primary Care Provider] - Diet: Carb Consistent or DM2 Addtl Attending Provider Instructions: Mr Uribe You came to the hospital due to right sided flank pain. You were evaluated and found to have kidney stones. You were managed in the hospital and you passed a stone. This was sent for analysis. You can follow up with your Primary Doctor about the results. Your CT scan also showed a possible cyst/lesion in your right kidney. Your Primary Doctor can arrange urology referral for definitive stone management and further evaluation. It was a pleasure taking care of you. Pending Studies at Discharge: No Stand-Alone Forms: [employer], Smoking Cessation Medications and DC Order Prescriptions: Continued metformin 500 mg tablet 500 mg PO BIDM simvastatin 40 mg tablet 40 mg PO QAM Discharge Orders: Discharge Order (Routine); Ordered 08/17/23 Ordered By: Zainab Marie/Other Patient Handouts: Understanding Kidney Stones Admission Data Admit Date/Time: 08/16/23 15:30 Attending Provider: Zainab Iqbal I. Admit Provider: Ayaka Alvarez Primary Care Provider: Danika Goldman Other Providers: Ayaka Alvarez; Rashaun Lin Other Interventions: Discharge Summary Assessment (RN) Last Done: 08/17/23 14:56
== END 2023-08-17 15:12 | disposition home or self-care (01) | DRG 694 ==
LOC: ED 12:38 → 3N 15:30 → SUATTDRO 15:30 → 3N 16:14